=== PATIENT | male | born 1960 | race African-American/Black ===

== ENCOUNTER 2020-08-24 15:20 | Emergency (ER) | payer SELFPAY ==
[2020-08-24] MEDS ORDERED: CEPHALEXIN500 M1 PO (17:56)
[2020-08-24 18:00] VITALS: BP 128/77
== END 2020-08-24 18:00 | disposition home or self-care (01) | DRG 605 ==
LOC: ED 15:20 → EDBD 15:20 → ED 15:58
PROC: 0HQFXZZ Repair Right Hand Skin, External Approach (ICD-10-PCS; principal; 2020-08-24)
DX: S61.011A Laceration without foreign body of right thumb without damage to nail, initial encounter (principal); W01.110A Fall on same level from slipping, tripping and stumbling with subsequent striking against sharp glass, initial encounter; Y92.009 Unspecified place in unspecified non-institutional (private) residence as the place of occurrence of the external cause